=== PATIENT | female | born 1990 | race African-American/Black ===

== ENCOUNTER 2016-10-01 09:57 | Emergency (ER) | payer OTHER ==
[2016-10-01 10:02] VITALS: BMI 18.0
--- NOTE | 2016-10-01 10:40 | PDOC ---
History of Present Illness - General Chief Complaint: Pain Stated Complaint: ABD PAIN Time Seen by Provider: 10/01/16 10:36 History Source: Patient Past History - Past Medical History Allergies/Adverse Reactions: Allergies Allergy/AdvReac Type Severity Reaction Status Date / Time No Known Allergies Allergy Verified 10/01/16 10:03 Asthma: Yes - Psycho/Social/Smoking Cessation Hx Suicidal Ideation: No Smoking History: Never smoked Information on smoking cessation initiated: No *Physical Exam - Vital Signs Last Vital Signs Temp Pulse Resp BP Pulse Ox 74 18 141/56 99 10/01/16 10:00 10/01/16 10:00 10/01/16 10:00 10/01/16 10:00
[2016-10-01] MEDS ORDERED: ACETAMINOPHEN 325 MG TABLET (FP) PO ONE (11:01)
[2016-10-01] MEDS ORDERED: ACETAMINOPHEN 325 MG TABLET (FP) ONE (11:17)
--- NOTE | 2016-10-01 11:18 | PDOC ---
*Physical Exam - Vital Signs Last Vital Signs Temp Pulse Resp BP Pulse Ox 97.8 F 74 18 141/56 99 10/01/16 10:00 10/01/16 10:00 10/01/16 10:00 10/01/16 10:00 10/01/16 10:00 - Physical Exam Comments: 10/01/16 11:18 MIDLEVEL NOTE Pt seen by Midlevel Provider under my direct supervision. Pt interviewed and examined. Ancillary studies reviewed. I agree with plan as outlined by Midlevel Provider. Ultrasound shows a single viable intrauterine gestation measuring 6 weeks 4 days with a heart rate of 130 bpm. Laboratory Tests 10/01/16 10/01/16 10/01/16 11:30 11:30 11:30 WBC 10.2 H RBC 5.01 Hgb 14.5 Hct 42.0 MCV 83.8 MCHC 34.4 RDW 13.0 Plt Count 168 MPV 8.7 Neutrophils % 77.8 Lymphocytes % 16.5 Monocytes % 4.3 Eosinophils % 1.0 Basophils % 0.4 Sodium 139 Potassium 3.8 Chloride 101 Carbon Dioxide 26 Anion Gap 12 BUN 10 Creatinine 0.7 Creat Clearance w eGFR > 60 Random Glucose 80 Calcium 9.5 Total Bilirubin 0.5 AST 11 L ALT 20 Alkaline Phosphatase 54 Total Protein 8.4 H Albumin 4.8 Beta HCG, Quant 69923.2 Urine Color Yellow Urine Appearance Clear Urine pH 6.0 Ur Specific [place] 1.025 Urine Protein Negative Urine Glucose (UA) Negative Urine Ketones Negative Urine Blood Negative Urine Nitrite Negative Urine Bilirubin Negative Urine Urobilinogen 2.0 e.u/dl H Ur Leukocyte Esterase Negative Blood Type Antibody Screen 10/01/16 12:40 WBC RBC Hgb Hct MCV MCHC RDW Plt Count MPV Neutrophils % Lymphocytes % Monocytes % Eosinophils % Basophils % Sodium Potassium Chloride Carbon Dioxide Anion Gap BUN Creatinine Creat Clearance w eGFR Random Glucose Calcium Total Bilirubin AST ALT Alkaline Phosphatase Total Protein Albumin Beta HCG, Quant Urine Color Urine Appearance Urine pH Ur Specific [place] Urine Protein Urine Glucose (UA) Urine Ketones Urine Blood Urine Nitrite Urine Bilirubin Urine Urobilinogen Ur Leukocyte Esterase Blood Type O POSITIVE Antibody Screen Negative discharge home to follow-up with her software quality assurance specialist. ED Treatment Course - LABORATORY CBC & Chemistry Diagram: 10/01/16 11:30 10/01/16 11:30 *DC/Admit/Observation/Transfer Diagnosis at time of Disposition: Threatened - Discharge Dispostion Disposition: HOME Condition at time of disposition: Good - Patient Instructions Printed Discharge Instructions: DI for Threatened Additional Instructions: At this time you are 6 weeks 4 days. Please follow up with her RETAIL SALES REPRESENTATIVE to discuss your .
--- NOTE | 2016-10-01 11:23 | PDOC ---
History of Present Illness - General Chief Complaint: Pain Stated Complaint: ABD PAIN Time Seen by Provider: 10/01/16 10:36 History Source: Patient Exam Limitations: No Limitations - History of Present Illness Travel History: No Initial Comments: 10/01/16 11:38 26-year-old female approximately 6 weeks presents with suprapubic cramping associated with spotting 2 days prior. Patient states has no nausea fever, dysuria or back pain, or weakness. Patient states is contemplating following through with the and has not discussed her options with her CARDBOARD INSERTER. Timing/Duration: reports: changing over time Quality: reports: mild, cramping Abdominal Pain Onset Location: reports: suprapubic (mid) Pain Radiation: reports: no radiation Activities at Onset: reports: none Aggravating Factors: improves with: None Alleviating Factors: improves with: None Past History - Past Medical History Allergies/Adverse Reactions: Allergies Allergy/AdvReac Type Severity Reaction Status Date / Time No Known Allergies Allergy Verified 10/01/16 10:03 Home Medications: Ambulatory Orders NK [No Known Home Medication] 10/01/16 Asthma: Yes - Reproductive History Is Patient Now?: Yes (#): 3 Para: 1 Therapeutic (s) & number: Yes (1) - Psycho/Social/Smoking Cessation Hx Suicidal Ideation: No Smoking History: Never smoked Information on smoking cessation initiated: No Patient Lives Alone: No Review of Systems - Review of Systems Able to Perform ROS?: Yes Constitutional: No: Symptoms Reported HEENTM: No: Symptoms Reported Respiratory: No: Symptoms reported Cardiac (ROS): No: Symptoms Reported ABD/GI: Yes: Abdominal cramping : Yes: Discharge (brownish pink 2 days ago) Musculoskeletal: No: Symptoms Reported Integumentary: No: Symptoms Reported Neurological: No: Symptoms reported *Physical Exam - Vital Signs Last Vital Signs Temp Pulse Resp BP Pulse Ox 97.8 F 74 18 141/56 99 10/01/16 10:00 10/01/16 10:00 10/01/16 10:00 10/01/16 10:00 10/01/16 10:00 - Physical Exam General Appearance: Yes: Nourished, Appropriately Dressed. No: Apparent Distress HEENT: negative: Pale Conjunctivae Neck: positive: Normal Thyroid, Supple Respiratory/Chest: positive: Lungs Clear, Normal Breath Sounds. negative: Respiratory Distress, Accessory Muscle Use Cardiovascular: positive: Regular Rhythm, Regular Rate. negative: Murmur Female Pelvic Exam: positive: cervical os closed. negative: adnexal tenderness , vaginal bleeding Gastrointestinal/Abdominal: positive: Normal Bowel Sounds, Soft, Tenderness ( mild mid). negative: Distended, Guarding, Rebound Integumentary: positive: Normal Color, Warm, Moist Neurologic: positive: Motor Strength 5/5 (ambulatory) ED Treatment Course - LABORATORY CBC & Chemistry Diagram: 10/01/16 11:30 10/01/16 11:30 - RADIOLOGY Radiology Studies Ordered: Category Date Time Status <14WKS US [US] Stat Ultrasound 10/01/16 11:01 Ordered Medical Decision Making - Medical Decision Making 10/01/16 11:30 Patient here complaining of vaginal spotting 2 days ago and mild mid suprapubic cramping since Friday. Patient states is contemplating keeping the and has not seen a CARDBOARD INSERTER as of yet. Patient denies recent injury, dyspareunia, chills, nausea, weakness or dysuria. on exam had no adnexal tenderness no dischargeand no bleeding. Patent was ordered for CBC comp urine and ultrasound.Patient has a CARDBOARD INSERTER but as mentioned previously patient is contemplating continue with the . 10/01/16 13:42 Laboratory Tests 10/01/16 10/01/16 10/01/16 11:30 11:30 11:30 WBC 10.2 H Hgb 14.5 Hct 42.0 Neutrophils % 77.8 Sodium 139 Potassium 3.8 Chloride 101 Carbon Dioxide 26 Anion Gap 12 BUN 10 Creatinine 0.7 Random Glucose 80 Calcium 9.5 Total Bilirubin 0.5 AST 11 L ALT 20 Total Protein 8.4 H Beta HCG, Quant 80381.2 Urine Ketones Negative Urine Nitrite Negative Ur Leukocyte Esterase Negative Blood Type Antibody Screen 10/01/16 12:40 WBC Hgb Hct Neutrophils % Sodium Potassium Chloride Carbon Dioxide Anion Gap BUN Creatinine Random Glucose Calcium Total Bilirubin AST ALT Total Protein Beta HCG, Quant Urine Ketones Urine Nitrite Ur Leukocyte Esterase Blood Type Pending Antibody Screen Pending Ultrasound shows a single viable intrauterine gestation measuring 6 weeks 4 days with a heart rate of 1 30 bpm. Will check type and screen. if normal will discharge home to follow-up with her telegraph repeater installer. 10/01/16 14:10 Laboratory Tests 10/01/16 12:40 Blood Type O POSITIVE Antibody Screen Negative *DC/Admit/Observation/Transfer Diagnosis at time of Disposition: Threatened - Discharge Dispostion Disposition: HOME Condition at time of disposition: Good - Patient Instructions Printed Discharge Instructions: DI for Threatened Additional Instructions: At this time you are 6 weeks 4 days. Please follow up with her CARDBOARD INSERTER to discuss your .
[2016-10-01 11:37] LABS: BASOPHIL 0.4 % (0-2.0); MCH 28.9 pg (25.7-33.7); MCHC 34.4 g/dl (32.0-36.0); MEAN CELL VOLUME 83.8 fl (80-96); MEAN PLT VOLUME 8.7 fl (7.5-11.1); NEUTROPHILS 77.8 % (42.8-82.8); PLATELET COUNT 168 K/MM3 (134-434); WHITE BLOOD COUNT 10.2 K/mm3 (4.0-10.0)
[2016-10-01 11:40] LABS: URINE APPEARANCE CLEAR; URINE BILIRUBIN NEGATIVE (NEGATIVE); URINE BLOOD NEGATIVE (NEGATIVE); URINE COLOR YELLOW; URINE GLUCOSE (UA) NEGATIVE (NEGATIVE); URINE KETONE NEGATIVE (NEGATIVE); URINE LEUK ESTERASE NEGATIVE (NEGATIVE); URINE NITRITE NEGATIVE (NEGATIVE); URINE PROTEIN NEGATIVE (NEGATIVE); URINE UROBILINOGEN 2.0 E.U/dl E.U./dl (0.2-1.0)
[2016-10-01 12:03] LABS: ALBUMIN 4.8 g/dl (3.4-5.0); ANION GAP 12 (8-16); BILIRUBIN,TOTAL 0.5 mg/dL (0.2-1.0); CALCIUM 9.5 mg/dL (8.5-10.1); CO2 26 mmol/L (21-32); CREATININE 0.7 mg/dL (0.55-1.02); GLUCOSE,RANDOM 80 mg/dL (74-106); SGOT/AST 11 U/L (15-37); SGPT/ALT 20 U/L (12-78); TOT PROT 8.4 g/dl (6.4-8.2)
[2016-10-01 12:18] LABS: ALK PHOS 54 U/L (45-117)
[2016-10-01 13:55] VITALS: BP 104/61; PULSE 64; TEMP 98.6
== END 2016-10-01 13:55 | disposition home or self-care (01) ==
LOC: JER 09:57
DX: O20.0 Threatened abortion (principal); Z3A.01 Less than 8 weeks gestation of pregnancy
CPT/HCPCS: 36415; 76801-TC; 80053; 81003; 84702; 85025; 86850; 86900; 86901; 99283-25

== ENCOUNTER 2021-05-16 02:32 | Emergency (ER) | payer OTHER ==
[2021-05-16 02:47] VITALS: BP 120/80; PULSE 78; TEMP 98.9; BMI 19.8
[2021-05-16 04:11] LABS: BASO % 0.9 % (0-2.0); EOS % 0.9 % (0-4.5); HEMATOCRIT 34.7 % (32.4-45.2); HEMOGLOBIN 11.8 GM/dL (10.7-15.3); LYMPH % 28.1 % (8-40); MCH 27.2 pg (25.7-33.7); MCHC 34.1 g/dl (32.0-36.0); MEAN CELL VOLUME 79.6 fl (80-96); MEAN PLT VOLUME 9.4 fl (7.5-11.1); MONO % 6.6 % (3.8-10.2); NEUT % 63.5 % (42.8-82.8); PLATELET COUNT 188 10^3/uL (134-434); RBC 4.36 M/mm3 (3.60-5.2); RDW 16.3 % (11.6-15.6); WHITE BLOOD COUNT 8.9 K/mm3 (4.0-10.0)
== END 2021-05-16 04:29 | disposition home or self-care (01) ==
LOC: JER 02:32
DX: O26.851 Spotting complicating pregnancy, first trimester (principal); Z3A.08 8 weeks gestation of pregnancy
CPT/HCPCS: 36415; 84702; 85025; 86850; 86900; 86901; 99283-25

== ENCOUNTER 2021-05-16 09:09 | Emergency (ER) | payer OTHER ==
[2021-05-16 09:16] VITALS: BP 115/71; PULSE 74; TEMP 98.4; BMI 20.6
== END 2021-05-16 12:25 | disposition home or self-care (01) ==
LOC: JERFT 09:09
DX: O26.851 Spotting complicating pregnancy, first trimester (principal); Z3A.08 8 weeks gestation of pregnancy
CPT/HCPCS: 76817-TC; 99284-25

== ENCOUNTER 2021-05-18 21:28 | Emergency (ER) | payer OTHER ==
[2021-05-18 21:37] VITALS: BP 109/64; PULSE 65; TEMP 97; BMI 20.5
[2021-05-18 22:48] LABS: BASO % 0.3 % (0-2.0); EOS % 0.6 % (0-4.5); HEMATOCRIT 34.5 % (32.4-45.2); HEMOGLOBIN 12.1 GM/dL (10.7-15.3); LYMPH % 19.8 % (8-40); MCH 27.4 pg (25.7-33.7); MCHC 35.2 g/dl (32.0-36.0); MEAN PLT VOLUME 8.7 fl (7.5-11.1); MONO % 7.4 % (3.8-10.2); NEUT % 71.9 % (42.8-82.8); PLATELET COUNT 219 10^3/uL (134-434); RBC 4.42 M/mm3 (3.60-5.2); RDW 16.3 % (11.6-15.6); WHITE BLOOD COUNT 9.4 K/mm3 (4.0-10.0)
[2021-05-18 23:15] LABS: CALCIUM 9.2 mg/dL (8.5-10.1)
[2021-05-18 23:16] LABS: BLOOD UREA NITROGEN 11.6 mg/dL (7-18)
[2021-05-18 23:19] LABS: CREATININE 0.8 mg/dL (0.55-1.3)
== END 2021-05-19 01:51 | disposition home or self-care (01) ==
LOC: JER 21:28
DX: O20.0 Threatened abortion (principal)
CPT/HCPCS: 36415; 76817-TC; 80048; 84702; 85025; 99284-25

== ENCOUNTER 2021-07-26 13:31 | Emergency (ER) | payer OTHER ==
[2021-07-26 13:50] VITALS: BP 100/68; PULSE 112; TEMP 99; BMI 20.9
[2021-07-26] MEDS ORDERED: ACETAMINOPHEN 500 MG TABLET (FP) PO ONE (14:45)
[2021-07-27 15:12] LABS: SARS-CoV-2 NAA Detected (Not Detected)
== END 2021-07-26 16:09 | disposition home or self-care (01) ==
LOC: JER 13:31
DX: O99.512 Diseases of the respiratory system complicating pregnancy, second trimester (principal); Z3A.16 16 weeks gestation of pregnancy
CPT/HCPCS: 87804; 87807; 99283-25; C9803; U0003; U0005

== ENCOUNTER 2021-12-16 00:30 | Inpatient (IN) | payer OTHER ==
[2021-12-16] MEDS ORDERED: AMPICILLIN - 2 GM in SODIUM CHLORIDE 100 ML IVPB ONE (02:00)
[2021-12-16] MEDS: DEXTROSE 5%-LACTATED RINGERS 1,000 ML IV SCH ×2 (02:15→14:30)
[2021-12-16] MEDS ORDERED: AMPICILLIN SODIUM 2 GM VIAL ONE (02:27)
[2021-12-16] MEDS ORDERED: BETAMET ACET/BETAMET NA PH 30 MG/5 ML VIAL IM ONE (02:50)
[2021-12-16] MEDS ORDERED: BETAMET ACET/BETAMET NA PH 30 MG/5 ML VIAL ONE (02:51)
[2021-12-16 03:21] LABS: BASO % 0.3 % (0-2.0); EOS % 1.2 % (0-4.5); HEMATOCRIT 26.6 % (32.4-45.2); LYMPH % 13.5 % (8-40); MCH 24.8 pg (25.7-33.7); MEAN CELL VOLUME 72.9 fl (80-96); MEAN PLT VOLUME 8.8 fl (7.5-11.1); MONO % 8.5 % (3.8-10.2); NEUT % 76.5 % (42.8-82.8); PLATELET COUNT 236 10^3/uL (134-434); RBC 3.66 M/mm3 (3.60-5.2); RDW 19.6 % (11.6-15.6); WHITE BLOOD COUNT 10.4 K/mm3 (4.0-10.0)
[2021-12-16 03:28] LABS: INR 0.93 (0.83-1.09); PROTHROMBIN TIME (PATIENT) 10.7 SEC (9.7-13.0)
[2021-12-16 03:31] LABS: ACTIVATED PTT 23.9 SECONDS (25.2-36.5)
[2021-12-16 03:38] LABS: CALCIUM 9.2 mg/dL (8.5-10.1)
[2021-12-16 03:39] LABS: ALBUMIN 2.8 g/dl (3.4-5.0); BLOOD UREA NITROGEN 12.8 mg/dL (7-18)
[2021-12-16 03:42] LABS: CREATININE 0.5 mg/dL (0.55-1.3)
[2021-12-16 03:44] LABS: BILIRUBIN,TOTAL 0.3 mg/dL (0.2-1); TOT PROT 6.2 g/dl (6.4-8.2)
[2021-12-16 04:03] VITALS: BMI 25.8
[2021-12-16 04:05] LABS: HEPATITIS B SURFACE AG MATERN NON-REACTIVE (NONREACTIVE)
[2021-12-16 04:06] LABS: SYPHILIS W/ RPR CONF NON-REACTIVE (NONREACTIVE)
[2021-12-16 04:34] LABS: HIV INTERPRETATION NEGATIVE (NEGATIVE)
[2021-12-16] MEDS: AMPICILLIN - 1 GM in SODIUM CHLORIDE 100 ML IVPB SCH ×4 (06:30→17:58)
[2021-12-16] MEDS ORDERED: AMPICILLIN SODIUM 1 GM VIAL ONE ×4 (06:31→17:55)
[2021-12-16] MEDS ORDERED: OXYTOCIN 30 UNITS in 0.9% NS 30 UNIT/500 ML INFUS.BAG IVPB ONE (12:31)
[2021-12-16] MEDS ORDERED: OXYTOCIN 30 UNITS in 0.9% NS 30 UNIT/500 ML INFUS.BAG IVPB SCH (12:45)
[2021-12-16] MEDS ORDERED: BUTORPHANOL TARTRATE 2 MG/ML VIAL IVPB ONE (18:17)
[2021-12-16] MEDS ORDERED: PROMETHAZINE HCL 25 MG/1 ML VIAL IVPB ONE (18:17)
[2021-12-16] MEDS ORDERED: PROMETHAZINE HCL 25 MG/1 ML VIAL ONE (18:24)
[2021-12-16] MEDS ORDERED: BUTORPHANOL TARTRATE 2 MG/ML VIAL ONE (18:24)
[2021-12-16] MEDS ORDERED: FENTANYL/BUPIVACAINE/NS/PF - PCEA - 50 ML DISP.SYRIN EP ONE (20:45)
[2021-12-16] MEDS ORDERED: OXYTOCIN 20 UNITS in 0.9% NS 20 UNIT/1,000 ML INFUS.BAG IV ONE (21:06)
[2021-12-16] MEDS ORDERED: BISACODYL 10 MG SUPP.RECT RC PRN (22:05)
[2021-12-16] MEDS ORDERED: BENZOCAINE 28 GM HEMORRHOIDAL OINTMENT TP PRN (22:05)
[2021-12-16] MEDS ORDERED: ACETAMINOPHEN 325 MG TABLET (FP) PO PRN (22:05)
[2021-12-16] MEDS ORDERED: oxyCODONE HCL 5 MG TABLET PO PRN (22:05)
[2021-12-16] MEDS ORDERED: BENZOCAINE 20% 57 GM BOTTLE TP PRN (22:05)
[2021-12-16] MEDS ORDERED: WITCH HAZEL 50% (TUCKS) 40 PAD/JAR PAD TP PRN (22:05)
[2021-12-16] MEDS ORDERED: METHYLERGONOVINE MALEATE 0.2 MG/1 ML AMP IM PRN (22:05)
[2021-12-16] MEDS ORDERED: OXYTOCIN 20 UNITS in 0.9% NS 20 UNIT/1,000 ML INFUS.BAG IV SCH (22:15)
[2021-12-17 01:12] LABS: CORD BASE EXCESS -7.2 mmol/L (0-2); CORD PCO2 35.7 mmHg (30-78); CORD pH 7.321 (7.14-7.44)
[2021-12-17] MEDS: IBUPROFEN 600 MG TABLET (FP) PO PRN ×2 (06:05→17:36)
[2021-12-17] MEDS ORDERED: IBUPROFEN 600 MG TABLET (FP) PO ONE (06:05)
[2021-12-17] MEDS: DEXTROSE 5%-LACTATED RINGERS 1,000 ML IV SCH (07:18)
[2021-12-17 08:01] LABS: POC NITRAZINE POS
[2021-12-17 09:17] LABS: BASO % 0.2 % (0-2.0); EOS % 0.1 % (0-4.5); HEMOGLOBIN 8.7 GM/dL (10.7-15.3); LYMPH % 6.8 % (8-40); MCH 24.7 pg (25.7-33.7); MCHC 33.5 g/dl (32.0-36.0); MEAN CELL VOLUME 73.7 fl (80-96); MEAN PLT VOLUME 8.3 fl (7.5-11.1); MONO % 5.7 % (3.8-10.2); NEUT % 87.2 % (42.8-82.8); PLATELET COUNT 211 10^3/uL (134-434); RBC 3.52 M/mm3 (3.60-5.2); RDW 19.7 % (11.6-15.6); WHITE BLOOD COUNT 16.7 K/mm3 (4.0-10.0)
[2021-12-17] MEDS: DOCUSATE SODIUM 100 MG CAPSULE (FP) PO SCH (09:20)
[2021-12-17] MEDS: PRENATAL VITAMINS W/ FOLIC ACID TABLET (FP) PO SCH (09:20)
[2021-12-17] MEDS: FERROUS SO4 325 MG TABLET (FP) PO SCH (09:20)
[2021-12-17] MEDS ORDERED: AZITHROMYCIN 500 MG TABLET PO ONE (17:41)
[2021-12-17] MEDS ORDERED: SENNOSIDES/DOCUSATE COMBO (SENNA PLUS) TABLET (UD) PO PRN (22:00)
[2021-12-18] MEDS: IBUPROFEN 600 MG TABLET (FP) PO PRN (08:23)
[2021-12-18] MEDS: DOCUSATE SODIUM 100 MG CAPSULE (FP) PO SCH (10:45)
[2021-12-18] MEDS: FERROUS SO4 325 MG TABLET (FP) PO SCH (10:45)
[2021-12-18] MEDS: PRENATAL VITAMINS W/ FOLIC ACID TABLET (FP) PO SCH (10:45)
[2021-12-18 14:24] VITALS: BP 114/72; PULSE 96; TEMP 98.3
== END 2021-12-18 14:40 | disposition home or self-care (01) | DRG 560 ==
LOC: JLDR 00:30 → J3W 12-17 07:25
PROVIDERS: ADMIT Obstetrics & Gynecology; ATTEND Obstetrics & Gynecology
DX: O42.913 Preterm premature rupture of membranes, unspecified as to length of time between rupture and onset of labor, third trimester (principal); O75.89 Other specified complications of labor and delivery; A74.9 Chlamydial infection, unspecified; Z3A.35 35 weeks gestation of pregnancy; Z37.0 Single live birth
CPT/HCPCS: 36415; 36600; 59409; 76819-TC; 80053; 82803; 83986-QW; 85025; 85610; 85730; 86762; 86780; 86850; 86900; 86901; 87340; 87389; 96372; C9803-CS; U0003; U0005

== ENCOUNTER 2022-06-12 21:44 | Emergency (ER) | payer OTHER ==
[2022-06-12 21:57] VITALS: BP 122/79; PULSE 106; RESP 18; TEMP 97.7; BMI 21.9
[2022-06-12] MEDS ORDERED: DEXAMETHASONE 4 MG TABLET (FP) PO ONE (22:37)
[2022-06-12] MEDS ORDERED: DEXAMETHASONE 4 MG TABLET (FP) ONE (22:53)
== END 2022-06-12 23:21 | disposition home or self-care (01) ==
LOC: JER 21:44
DX: R05.1 Acute cough (principal); J02.9 Acute pharyngitis, unspecified; B97.4 Respiratory syncytial virus as the cause of diseases classified elsewhere
CPT/HCPCS: 0241U-QW; 99283-25

== ENCOUNTER 2022-07-29 14:17 | Emergency (ER) | payer OTHER ==
[2022-07-29 14:54] VITALS: BP 102/65; PULSE 77; RESP 20; TEMP 98.3; BMI 21.9
[2022-07-29 16:19] LABS: BASO % 1.1 % (0-2.0); EOS % 1.6 % (0-4.5); HEMATOCRIT 37.1 % (32.4-45.2); HEMOGLOBIN 12.1 GM/dL (10.7-15.3); LYMPH % 24.9 % (8-40); MCH 24.9 pg (25.7-33.7); MCHC 32.7 g/dl (32.0-36.0); MEAN CELL VOLUME 76.1 fl (80-96); MEAN PLT VOLUME 8.8 fl (7.5-11.1); MONO % 7.2 % (3.8-10.2); NEUT % 65.2 % (42.8-82.8); PLATELET COUNT 210 10^3/uL (134-434); RBC 4.88 M/mm3 (3.60-5.2); RDW 16.4 % (11.6-15.6); WHITE BLOOD COUNT 9.1 K/mm3 (4.0-10.0)
[2022-07-29 16:23] LABS: EPI CELLS 29 /uL (0-25.1); HYALINE CASTS 1 /uL (0-3.1); URINE APPEARANCE CLEAR; URINE BACTERIA 131 /uL (0-1359); URINE BILIRUBIN NEGATIVE (NEGATIVE); URINE COLOR YELLOW; URINE GLUCOSE (UA) NEGATIVE (NEGATIVE); URINE KETONE TRACE (NEGATIVE); URINE LEUK ESTERASE NEGATIVE (NEGATIVE); URINE NITRITE NEGATIVE (NEGATIVE); URINE PROTEIN NEGATIVE (NEGATIVE); URINE RBC 77 /uL (0-23.9); URINE UROBILINOGEN 0.2 mg/dL (0.2-1.0); URINE WBC 10 /uL (0-25.8)
[2022-07-29 16:38] LABS: CALCIUM 9.2 mg/dL (8.5-10.1)
[2022-07-29 16:39] LABS: ALBUMIN 3.9 g/dl (3.4-5.0); BLOOD UREA NITROGEN 10.4 mg/dL (7-18)
[2022-07-29 16:42] LABS: CREATININE 0.7 mg/dL (0.55-1.3)
[2022-07-29 16:43] LABS: BILIRUBIN,TOTAL 0.7 mg/dL (0.2-1); TOT PROT 7.6 g/dl (6.4-8.2)
[2022-07-29] MEDS ORDERED: METHOTREXATE SODIUM/PF 25 MG/ML VIAL IM ONE (19:06)
[2022-07-29 19:23] LABS: YEAST NONE SEEN (NEGATIVE)
== END 2022-07-29 19:53 | disposition home or self-care (01) ==
LOC: JER 14:17 → JERFT 14:17
PROC: 3E023GC Introduction of Other Therapeutic Substance into Muscle, Percutaneous Approach (ICD-10-PCS; principal; 2022-07-29)
DX: O00.00 Abdominal pregnancy without intrauterine pregnancy (principal); Z3A.01 Less than 8 weeks gestation of pregnancy
CPT/HCPCS: 36415; 76817-TC; 80053; 81003; 84702; 85025; 86850; 86900; 86901; 87086; 87491; 87591; 99284-25; J9260

== ENCOUNTER 2022-08-01 12:41 | Emergency (ER) | payer OTHER ==
[2022-08-01 12:50] VITALS: BP 118/69; PULSE 92; RESP 20; TEMP 98.8; BMI 21.9
[2022-08-01 14:46] LABS: EOS % 1.5 % (0-4.5); HEMATOCRIT 34.9 % (32.4-45.2); HEMOGLOBIN 11.6 GM/dL (10.7-15.3); MCH 25.4 pg (25.7-33.7); MCHC 33.1 g/dl (32.0-36.0); MEAN CELL VOLUME 76.5 fl (80-96); MEAN PLT VOLUME 9.8 fl (7.5-11.1); MONO % 3.7 % (3.8-10.2); NEUT % 72.8 % (42.8-82.8); PLATELET COUNT 179 10^3/uL (134-434); RBC 4.56 M/mm3 (3.60-5.2); RDW 16.5 % (11.6-15.6); WHITE BLOOD COUNT 6.4 K/mm3 (4.0-10.0)
== END 2022-08-01 14:36 | disposition home or self-care (01) ==
LOC: JER 12:41
DX: Z32.00 Encounter for pregnancy test, result unknown (principal)
CPT/HCPCS: 36415; 84702; 85025; 99283-25

== ENCOUNTER 2022-08-05 15:18 | Emergency (ER) | payer OTHER ==
[2022-08-05 15:43] VITALS: BP 121/71; PULSE 70; RESP 18; TEMP 98; BMI 21.9
== END 2022-08-05 16:47 | disposition home or self-care (01) ==
LOC: JERFT 15:18 → JER 15:18 → JERFT 16:47
DX: O00.102 Left tubal pregnancy without intrauterine pregnancy (principal); Z3A.00 Weeks of gestation of pregnancy not specified
CPT/HCPCS: 36415; 84702; 99283-25

== ENCOUNTER 2024-12-03 20:44 | Emergency (ER) | payer OTHER ==
[2024-12-03 21:12] VITALS: TEMP 98.4; BMI 23.5
[2024-12-03] MEDS ORDERED: ACETAMINOPHEN INJECTION 100 ML ONE (21:30)
[2024-12-03] MEDS ORDERED: METOCLOPRAMIDE HCL INJECTION 10 MG/2 ML VIAL ONE (21:30)
[2024-12-03] MEDS: LACTATED RINGERS SOLUTION 1000 ML INFUS.BAG IV ONE (21:44)
[2024-12-03] MEDS: ACETAMINOPHEN 1000 MG/100 ML BAG IVPB ONE (21:44)
[2024-12-03 21:48] LABS: ABSOLUTE IMMATURE GRANULOCYTES 0.03 x10^3/uL (0.0-0.031); BASOPHILS # 0.04 x10^3/uL (0.01-0.08); EOSINOPHIL % 2.4 % (0.7-5.8); EOSINOPHILS # 0.23 x10^3/uL (0.04-0.36); HEMATOCRIT 35.4 % (34.1-44.9); MCHC 33.9 g/dl (32.2-35.5); MEAN CELL VOLUME 79.6 fl (79.4-94.8); MEAN PLT VOLUME 10.2 fl (9.4-12.3); MONOCYTE # 0.66 x10^3/uL (0.24-0.86); MONOCYTE % 6.9 % (4.7-12.5); PLATELET COUNT 262 x10^3/uL (182-369); RDW 13.8 % (12.1-16.8)
[2024-12-03] MEDS: METOCLOPRAMIDE HCL INJECTION 10 MG/2 ML VIAL IVPB ONE (21:51)
[2024-12-03 22:13] LABS: CALCIUM 9.4 mg/dL (8.5-10.1); POTASSIUM 3.8 mmol/L (3.5-5.1)
[2024-12-03 22:14] LABS: ALBUMIN 3.7 g/dl (3.4-5.0); BLOOD UREA NITROGEN 11.1 mg/dL (7-18)
[2024-12-03 22:17] LABS: CREATININE 0.8 mg/dL (0.55-1.3)
[2024-12-03 22:20] LABS: BILIRUBIN,TOTAL 0.2 mg/dL (0.2-1); TOT PROT 7.1 g/dl (6.4-8.2)
[2024-12-03 23:09] LABS: HCV DIAGNOSTIC IN-HOUSE W/RFLX NON-REACTIVE (NONREACTIVE); HIV INTERPRETATION NEGATIVE (NEGATIVE)
[2024-12-03 23:51] LABS: URINE APPEARANCE Error; URINE BILIRUBIN NEGATIVE (NEGATIVE); URINE COLOR YELLOW; URINE GLUCOSE (UA) NEGATIVE (NEGATIVE); URINE KETONE NEGATIVE (NEGATIVE); URINE LEUK ESTERASE NEGATIVE (NEGATIVE); URINE NITRITE NEGATIVE (NEGATIVE); URINE PROTEIN NEGATIVE (NEGATIVE); URINE UROBILINOGEN 0.2 mg/dL (0.2-1.0)
[2024-12-03 23:53] LABS: HCG,QUALITATIVE URINE Negative
[2024-12-04 00:31] VITALS: BP 126/84; PULSE 67; RESP 16
== END 2024-12-04 01:04 | disposition home or self-care (01) ==
LOC: JER 20:44
PROC: 3E033NZ Introduction of Analgesics, Hypnotics, Sedatives into Peripheral Vein, Percutaneous Approach (ICD-10-PCS; principal; 2024-12-03)
PROC: 3E033GC Introduction of Other Therapeutic Substance into Peripheral Vein, Percutaneous Approach (ICD-10-PCS; 2024-12-03)
DX: R51.9 Headache, unspecified (principal); R11.0 Nausea; R53.1 Weakness; E86.0 Dehydration
CPT/HCPCS: 0241U-QW; 36415; 70450-TC; 80053; 81003; 83735; 84443; 84703; 85025; 86803; 87086; 87389; 99285-25; J0131

== ENCOUNTER 2024-12-25 00:50 | Emergency (ER) | payer OTHER ==
[2024-12-25 01:08] VITALS: BP 126/81; PULSE 89; RESP 20; TEMP 98.8; BMI 24.5
[2024-12-25] MEDS: ALBUTEROL SO4 2.5/IPRATROPIUM 0.5 INH SOL 3 ML VIAL.NEB. NEB SCH (01:30)
[2024-12-25] MEDS ORDERED: DEXAMETHASONE SOD PHOSPHATE 10 MG/1 ML VIAL ONE (01:33)
[2024-12-25] MEDS ORDERED: ALBUTEROL SO4 2.5/IPRATROPIUM 0.5 INH SOL 3 ML VIAL.NEB. NEB ONE (01:33)
[2024-12-25] MEDS ORDERED: ONDANSETRON 4 MG/2 ML VIAL ONE (01:34)
[2024-12-25] MEDS: DEXAMETHASONE SOD PHOSPHATE 10 MG/1 ML VIAL IVPB ONE (01:46)
[2024-12-25] MEDS: ONDANSETRON 4 MG/2 ML VIAL IVPUSH ONE (02:56)
== END 2024-12-25 03:12 | disposition home or self-care (01) ==
LOC: JER 00:50
PROC: 3E033GC Introduction of Other Therapeutic Substance into Peripheral Vein, Percutaneous Approach (ICD-10-PCS; principal; 2024-12-25)
DX: J45.901 Unspecified asthma with (acute) exacerbation (principal); R06.02 Shortness of breath; R05.9 Cough, unspecified; R07.89 Other chest pain; M54.9 Dorsalgia, unspecified; X39.8XXA Other exposure to forces of nature, initial encounter
CPT/HCPCS: 71046-TC-FY; 93005; 93010; 99284-25; J1100

== ENCOUNTER 2025-05-13 19:58 | Emergency (ER) | payer OTHER ==
[2025-05-13 20:16] VITALS: BP 114/68; PULSE 80; RESP 18; TEMP 98.3; BMI 24.1
[2025-05-13] MEDS ORDERED: METOCLOPRAMIDE HCL INJECTION 10 MG/2 ML VIAL ONE (21:14)
[2025-05-13] MEDS: SODIUM CHLORIDE 0.9% 500 ML INFUS.BAG IV ONE (21:33)
[2025-05-13] MEDS: METOCLOPRAMIDE HCL INJECTION 10 MG/2 ML VIAL IVPUSH ONE (21:34)
[2025-05-13 21:43] LABS: ABSOLUTE IMMATURE GRANULOCYTES 0.03 x10^3/uL (0.0-0.031); BASOPHILS # 0.06 x10^3/uL (0.01-0.08); EOSINOPHIL % 1.4 % (0.7-5.8); EOSINOPHILS # 0.13 x10^3/uL (0.04-0.36); MCHC 33.6 g/dl (32.2-35.5); MEAN CELL VOLUME 78.9 fl (79.4-94.8); MEAN PLT VOLUME 10.0 fl (9.4-12.3); MONOCYTE # 0.54 x10^3/uL (0.24-0.86); MONOCYTE % 5.7 % (4.7-12.5); RDW 14.2 % (12.1-16.8)
[2025-05-13 21:44] LABS: URINE APPEARANCE CLEAR; URINE BILIRUBIN NEGATIVE (NEGATIVE); URINE COLOR YELLOW; URINE GLUCOSE (UA) NEGATIVE (NEGATIVE); URINE KETONE TRACE (NEGATIVE); URINE LEUK ESTERASE NEGATIVE (NEGATIVE); URINE NITRITE NEGATIVE (NEGATIVE); URINE PROTEIN NEGATIVE (NEGATIVE); URINE UROBILINOGEN 1.0 mg/dL (0.2-1.0)
[2025-05-13 21:57] LABS: GLUCOSE,RANDOM 79.0 mg/dL (74-106)
[2025-05-13 21:58] LABS: TOT PROT 7.7 g/dl (6.4-8.2)
[2025-05-13 21:59] LABS: CO2 25.0 mmol/L (21-32)
[2025-05-13 22:00] LABS: ALK PHOS 68.0 U/L (40-150)
[2025-05-13 22:03] LABS: CREATININE 0.85 mg/dL (0.55-1.3); SGOT/AST 20.0 U/L (5-34); SGPT/ALT 24.0 U/L (0-55)
[2025-05-13 22:20] LABS: HCV DIAGNOSTIC IN-HOUSE W/RFLX NON-REACTIVE (NONREACTIVE); HIV INTERPRETATION NEGATIVE (NEGATIVE)
[2025-05-13] MEDS ORDERED: ACETAMINOPHEN INJECTION 100 ML ONE (23:45)
[2025-05-13] MEDS ORDERED: KETOROLAC TROMETHAMINE 15 MG/ML VIAL ONE (23:46)
[2025-05-13] MEDS: KETOROLAC TROMETHAMINE 15 MG/ML VIAL IVPUSH ONE (23:49)
[2025-05-13] MEDS: ACETAMINOPHEN 1000 MG/100 ML BAG IVPB ONE (23:50)
== END 2025-05-14 00:27 | disposition home or self-care (01) ==
LOC: JER 19:58
PROC: 3E033NZ Introduction of Analgesics, Hypnotics, Sedatives into Peripheral Vein, Percutaneous Approach (ICD-10-PCS; principal; 2025-05-13)
PROC: 3E0333Z Introduction of Anti-inflammatory into Peripheral Vein, Percutaneous Approach (ICD-10-PCS; 2025-05-13)
PROC: 3E033GC Introduction of Other Therapeutic Substance into Peripheral Vein, Percutaneous Approach (ICD-10-PCS; 2025-05-13)
DX: R51.9 Headache, unspecified (principal); K04.7 Periapical abscess without sinus
CPT/HCPCS: 36415; 70460-TC; 70487-TC; 80053; 81003; 84703; 85025; 86803; 87086; 87389; 99285-25; Q9967